=== PATIENT | male | born 1935 | race Caucasian/White ===

== ENCOUNTER → 2016-04-21 | Outpatient (CLI) | payer OTHER ==
[~2016-04-21] MED LIST: CALC500C70 PO; DGRI240 IM; HYDR2.5C37 TOP; SILO8CAP PO; TAMS0.4C38 PO; URX/10 PO; [UNRECOGNIZED DRUG - OTHER] PO
--- NOTE | 2016-05-22 10:54 | CODING QUERY MEDICAL NECESSITY ---
SUPPORTING DIAGNOSIS NEEDED A supporting diagnosis is required for the test/procedure performed on this patient in order for us to be reimbursed by the patient's insurance. Please provide a supporting diagnosis for the following test/procedure listed below next to the test name along with your signature. *If there is no additional diagnosis for this patient that would support the following test/procedure please document that below next to the test/procedure. Test(s)/Procedure(s) that require a supporting diagnosis: DOS 04/21 * PSA DIAGNOSIS: Provider Signature: Date: Thank you Andreina Duarte Health Information Management Once completed, please kindly fax back to [phone] For questions please call [phone]
== END | disposition home or self-care (01) ==
LOC: C.LABPBG 14:48
PROVIDERS: ATTEND Urology
DX: R39.9 Unspecified symptoms and signs involving the genitourinary system (principal); N40.2 Nodular prostate without lower urinary tract symptoms

== ENCOUNTER → 2016-05-28 | Outpatient (CLI) | payer OTHER ==
[~2016-05-28] MED LIST changes: +AZO PO; +PSYL48.59 PO
== END | disposition home or self-care (01) ==
LOC: C.PATHSPEC 17:06
PROVIDERS: ATTEND Urology
DX: N40.2 Nodular prostate without lower urinary tract symptoms (principal); C61 Malignant neoplasm of prostate

== ENCOUNTER 2016-06-02 13:30 | Emergency (ER) | payer OTHER ==
[~2016-06-02] VITALS: Ht 180.3 cm; Wt 79.0 kg
[2016-06-02 13:35] VITALS: TEMP 36.9; Ht 180.3 cm; Wt 79.0 kg
[2016-06-02] MEDS ORDERED: URX/10 PO (13:48)
[2016-06-02] MEDS ORDERED: [UNRECOGNIZED DRUG - OTHER] PO (13:49)
[2016-06-02 14:30] LABS: BASO % 0.5 %; BASO ABS # 0.03 K/uL (0-0.2); COMPLETE YES; EOS % 2.6 %; HEMATOCRIT 41.6 % (42-52); LYMPH % 28.1 %; MEAN CELL VOLUME 87.6 fL (80-100); MEAN CORPUSCULAR HEMOGLOBIN 30.1 pg (25-34); MEAN CORPUSCULAR HGB CONC 34.4 g/dl (32-36); MEAN PLATELET VOLUME 9.4 fL (7.4-10.4); MONO % 9.2 %; NEUT % 59.6 %; PLATELET COUNT 246 K/uL (130-400); RED BLOOD COUNT 4.75 M/uL (4.7-6.1); WHITE BLOOD COUNT 6.06 K/uL (4.8-10.8)
[2016-06-02 14:37] VITALS: O2SAT 97
[2016-06-02 14:39] LABS: PROTHROMBIN TIME (PATIENT) 10.8 SECONDS (9.0-12.0)
[2016-06-02 14:52] LABS: URINE APPEARANCE CLEAR (CLEAR); URINE BILIRUBIN NEG (NEG); URINE COLOR YELLOW; URINE NITRITE NEG (NEG); URINE SPECIFIC GRAVITY 1.016 (1.000-1.030); UROBILINOGEN NEG (NEG)
[2016-06-02 14:54] LABS: ALT/SGPT 25 U/L (12-78); AST/SGOT 17 U/L (15-37); BLOOD UREA NITROGEN 17 mg/dl (7-18); CALCIUM 8.8 mg/dl (8.5-10.1); CARBON DIOXIDE 28 mmol/L (21-32); CHLORIDE 105 mmol/L (98-107); GLUCOSE 97 mg/dl (70-99); POTASSIUM 4.2 mmol/L (3.5-5.1); SODIUM 140 mmol/L (136-145)
[2016-06-02 14:59] LABS: ALKALINE PHOSPHATASE 76 U/L (45-117); CKMB/CK RATIO 2.2 (0-3.0)
--- NOTE | 2016-06-02 15:14 | History and Physical: Surg Cnt ---
History & Physical Date Jun 02, 2016. Chief Complaint Hemorrhoids, rectal pain History of Present Illness The patient is a 81 year old male who presented to emergency department with complaint of hemorrhoids and rectal pain. Jose states he has had history of hemorrhoids in the past but has not had any significant troubles with them. States about 5 weeks ago , had a digital rectal examination for his prostate and then just recently this past had a prostate biopsy in the office under local anesthesia however this was not able to be completed given the extent of the hemorrhoids. Since the biopsy has had increasing pain and protrusion of the hemorrhoids. was a 10/10 pain at it worse now about 5/10. states they actually look slightly better than what they did a few days ago. Not as swollen. Had some loose stools with Bactrim antibiotics which he believes irritated the hemorrhoids. Denies of any constipation or straining. Has been applying Anusol as well as using witch malou tux pads. Past Medical/Surgical History Medical Problems: (1) Neurocardiogenic syncope Surgical Problems: (1) H/O hernia repair Allergies Coded Allergies: Cephalexin (Verified Allergy, Unknown, STOMACH PAINS, 06/02/16) Codeine (Verified Allergy, Unknown, HIVES, 06/02/16) Home Medications Scheduled Alfuzosin HCl (Alfuzosin HCl ER), 10 MG PO AFTER SUPPER [Protocel], 1 TAB PO 5XD Physical Examination Skin: warm/dry, no rash Eyes: sclerae normal Head: normocephalic, atraumatic Neck: supple Respiratory/Chest: lungs clear, normal breath sounds, no respiratory distress Cardiovascular: regular rate, rhythm Addiitonal Comments: Anorectal examination: Grade three external hemorrhoid left lateral column. Pain on a palpation. Encompassing about 180 degrees of the anus. Slightly bluish discoloration of part of the hemorrhoid. Non-thrombosed. Diagnosis Large External hemorrhoid- Left Lateral. - not thrombosed - vitals stable - no leukocytosis Plan of Treatment Plan: Dr. Chandler discussed with patient, either the option of surgical excision or conservative management with Anusol and Hydrocortisone, sitz baths, stools softener, avoiding constipation, and plenty of water. Since patients pain is improving and size of hemorrhoids decreasing patient would prefer to try conservative management first. Will give patient our office number to contact if pain increases or symptoms do not improve Thank you for the consultation and involving us in the care of this patient. Dr. Chandler has seen and examined patient, agrees with assessment and plan.
[2016-06-02 15:18] LABS: MANUAL MICROSCOPIC REQUIRED? NO; REVIEW REQ? NO
[2016-06-02 16:22] VITALS: BP 122/80; PULSE 71; O2SAT 96
--- NOTE | 2016-06-02 20:23 | EMERGENCY ROOM VISIT NOTE ---
History Report prepared by Destini: Amy Vela Under the Supervision of: Dr. Carlos Ca M.D. First contact with patient: 13:42 Chief Complaint: RECTAL PAIN Stated Complaint: HEMORRHOID Nursing Triage Summary: Triage Note: Pt reports "i have hemorrhoid problems." Pt reports increased rectal pain. pt had a prostate biopsy last by dr bee. History of Present Illness The patient is a 81 year old male who presents to the Emergency Room with complaints of worsening hemorrhoids over the past several weeks. Per patient's daughter, the patient has a history of hemorrhoids. The patient states that he is typically able to control the hemorrhoids. 5 weeks ago, the patient had a digital prostate examination and his hemorrhoids worsened. 5 days ago, the patient had a prostate biopsy. They did not finish the entire procedure due to his hemorrhoids. He was not given any medication to help with the hemorrhoids at that time. Since then, he has been hardly able to get out of bed. At rest, his pain is a 3/10 in severity but extends to a 10/10 with certain movements. His daughter states that he has been using some over the counter medications and ice with little relief. The patient could not get an outpatient appointment today so his family decided to bring him to the ED. They report that there was some rectal bleeding after the biopsy, but his hemorrhoids have not been bleeding. Pt denies LOC, headache, fevers, chills, diaphoresis, visual changes, neck pain, chest pain, breathing difficulties, nausea, vomiting, abdominal pain , back pain, melena, hematochezia, urinary symptoms, numbness, weakness, lymphadenopathy, rash, or other complaints. Source of History: patient Onset: several weeks ago Position: other (perirectal area) Quality: other (hemorrhoids) Timing: worsening Review of Systems See HPI for pertinent positives and negatives. A total of ten systems were reviewed and were otherwise negative. Past Medical & Surgical Medical Problems: (1) Neurocardiogenic syncope Surgical Problems: (1) H/O hernia repair Family History Cancer Heart disease Hypertension Kidney disease Seizures Social History Smoking Status: Never Smoker Marital Status: Housing Status: lives with significant other Occupation Status: retired Current/Historical Medications Scheduled Alfuzosin HCl (Alfuzosin HCl ER), 10 MG PO AFTER SUPPER [Protocel], 1 TAB PO 5XD Allergies Coded Allergies: Cephalexin (Verified Allergy, Unknown, STOMACH PAINS, 06/02/16) Codeine (Verified Allergy, Unknown, HIVES, 06/02/16) Physical Exam Vital Signs Date Time Temp Pulse Resp B/P Pulse Ox O2 Delivery O2 Flow Rate FiO2 06/02/16 16:22 71 20 122/80 96 06/02/16 15:28 72 20 128/71 97 Room Air 06/02/16 14:41 72 06/02/16 14:37 97 Room Air 06/02/16 13:35 36.9 96 18 118/69 95 Room Air Physical Exam GENERAL: Awake, alert, well-appearing, in no distress HENT: Normocephalic, atraumatic. Oropharynx unremarkable. EYES: Normal conjunctiva. Sclera non-icteric. NECK: Supple. No nuchal rigidity. FROM. No JVD. RESPIRATORY: Clear to auscultation. CARDIAC: Regular rate, normal rhythm. Extremities warm and well perfused. Pulses equal. ABDOMEN: Soft, non-distended. No tenderness to palpation. No rebound or guarding. No masses. RECTAL: He has large, edematous, tender, non-erythematous hemorrhoids. MUSCULOSKELETAL: Chest examination reveals no tenderness. The back is symmetrical on inspection without obvious abnormality. There is no CVA tenderness to palpation. No joint edema. LOWER EXTREMITIES: Calves are equal size bilaterally and non-tender. No edema. No discoloration. NEURO: Normal sensorium. No sensory or motor deficits noted. SKIN: No rash or jaundice noted. Medical Decision & Procedures Laboratory Results 06/02/16 14:20 Red Blood Count 4.75, Mean Corpuscular Volume 87.6, Mean Corpuscular Hemoglobin 30.1, Mean Corpuscular Hemoglobin Concent 34.4, Mean Platelet Volume 9.4, Neutrophils (%) (Auto) 59.6, Lymphocytes (%) (Auto) 28.1, Monocytes (%) (Auto) 9.2, Eosinophils (%) (Auto) 2.6, Basophils (%) (Auto) 0.5, Neutrophils # (Auto) 3.61, Lymphocytes # (Auto) 1.70, Monocytes # (Auto) 0.56, Eosinophils # (Auto) 0.16, Basophils # (Auto) 0.03 06/02/16 14:20 Test 06/02/16 14:20 06/02/16 14:35 White Blood Count 6.06 K/uL (4.8-10.8) Red Blood Count 4.75 M/uL (4.7-6.1) Hemoglobin 14.3 g/dL (14.0-18.0) Hematocrit 41.6 % (42-52) Mean Corpuscular Volume 87.6 fL (80-100) Mean Corpuscular Hemoglobin 30.1 pg (25-34) Mean Corpuscular Hemoglobin Concent 34.4 g/dl (32-36) Platelet Count 246 K/uL (130-400) Mean Platelet Volume 9.4 fL (7.4-10.4) Neutrophils (%) (Auto) 59.6 % Lymphocytes (%) (Auto) 28.1 % Monocytes (%) (Auto) 9.2 % Eosinophils (%) (Auto) 2.6 % Basophils (%) (Auto) 0.5 % Neutrophils # (Auto) 3.61 K/uL (1.4-6.5) Lymphocytes # (Auto) 1.70 K/uL (1.2-3.4) Monocytes # (Auto) 0.56 K/uL (0.11-0.59) Eosinophils # (Auto) 0.16 K/uL (0-0.5) Basophils # (Auto) 0.03 K/uL (0-0.2) RDW Standard Deviation 40.5 fL (36.4-46.3) RDW Coefficient of Variation 12.5 % (11.5-14.5) Immature Granulocyte % (Auto) 0.0 % Immature Granulocyte # (Auto) 0.00 K/uL (0.00-0.02) Prothrombin Time 10.8 SECONDS (9.0-12.0) Prothromb Time International Ratio 1.0 (0.9-1.1) Activated Partial Thromboplast Time 27.1 SECONDS (21.0-31.0) Partial Thromboplastin Ratio 1.0 Anion Gap 7.0 mmol/L (3-11) Est Creatinine Clear Calc Drug Dose 55.1 ml/min Estimated GFR () 72.1 Estimated GFR (Non- 62.2 BUN/Creatinine Ratio 15.0 (10-20) Calcium Level 8.8 mg/dl (8.5-10.1) Total Bilirubin 0.6 mg/dl (0.2-1) Direct Bilirubin 0.2 mg/dl (0-0.2) Aspartate Amino Transf (AST/SGOT) 17 U/L (15-37) Alanine Aminotransferase (ALT/SGPT) 25 U/L (12-78) Alkaline Phosphatase 76 U/L (45-117) Total Creatine Kinase 36 U/L (39-308) Creatine Kinase MB 0.8 ng/ml (0.5-3.6) Creatine Kinase MB Ratio 2.2 (0-3.0) Troponin I < 0.015 ng/ml (0-0.045) Total Protein 7.3 gm/dl (6.4-8.2) Albumin 3.4 gm/dl (3.4-5.0) Lipase 133 U/L (73-393) Urine Color YELLOW Urine Appearance CLEAR (CLEAR) Urine pH 5.0 (4.5-7.5) Urine Specific [place] 1.016 (1.000-1.030) Urine Protein NEG (NEG) Urine Glucose (UA) NEG (NEG) Urine Ketones NEG (NEG) Urine Occult Blood NEG (NEG) Urine Nitrite NEG (NEG) Urine Bilirubin NEG (NEG) Urine Urobilinogen NEG (NEG) Urine Leukocyte Esterase NEG (NEG) Laboratory results reviewed by me ECG Indication: other (rectal pain) Rate (beats per minute): 73 Rhythm: normal sinus Findings: no acute ischemic change, no ectopy ED Course 1400: The patient was evaluated in room B2. A complete history and physical exam was performed. 1435: I discussed the case with Charlette Herr PA-C - General Surgery. She will see the patient. 1448: I reassessed the patient. Surgery was at bedside. 1545: I spoke with Dr. Chandler - General Surgery. The patient had a large meal POULTRY VACCINATOR. Because he cannot go to surgery at this point, Dr. Chandler and the patient agreed on conservative management using ice, Sitz baths, Cholase, and Anusol HC. 1605: I reevaluated the patient. Discussed results and discharge instructions: He verbalized understanding and agreement. The patient is ready for discharge. Medical Decision Triage Nursing notes reviewed. The patient's presentation and history were concerning for rectal pain. Etiologies such as incarcerated hemorrhoids, thrombosed hemorrhoids, perirectal abscess, appendicitis, diverticulitis, obstruction, inflammatory bowel disease , renal colic, PUD, biliary pathology, pancreatitis, mesenteric ischemia, aortic pathology, infections, genitourinary, UTI, perforated viscus, as well as others were entertained. The patient was evaluated. He had a benign abdomen. He is rectal examination reveals significant edematous and tender hemorrhoids. The patient had unremarkable blood work. I did consult general surgery. The patient was evaluated by Dr. Chandler and his PA. Unfortunately the patient had just eaten and they were unable to do any surgical intervention. I did recommend Anusol HC, ice, stool softener, and sitz bath. They will follow the patient up in the office. If he worsens he is supposed to come back to the emergency department. I gave my usual and customary discussion regarding this issue. I did write for his Anusol HC prescription. By the evaluation outlined above other emergent etiologies such as those listed in the differential, as well as others, were deemed relatively unlikely. The patient and family were informed about the findings as listed above. All questions were answered and they were pleased with the treatment. Return instructions were outlined and the patient was discharged in stable condition. The patient was referred to general surgery for follow-up for a recheck of the current condition. The chart was completed utilizing [facility] Speech voice recognition software. Grammatical errors, random word insertions, pronoun errors, and incomplete sentences are an occasional consequence of this system due to software limitations, ambient noise, and hardware issues. Any formal questions or concerns about the content, text, or information contained within the body of this dictation should be directly addressed to the physician for clarification. Consults Time Called: 1430 Consulting Physician: Charlette Herr PA-C - General Surgery Returned Call: [phone] I discussed the case with her. She will see the patient. Additional Consults: Time Called: -- Consulted Physician: Dr. Chandler - General Surgery Returned Call: [phone] Additional Comments: I spoke with him. The patient had a large meal POULTRY VACCINATOR. Because he cannot go to surgery at this point, Dr. Chandler and the patient agreed on conservative management using ice, Sitz baths, Cholase, and Anusol HC. Impression Primary Impression: Hemorrhoids Additional Impression: Rectal pain Scribe Attestation The scribe's documentation has been prepared under my direction and personally reviewed by me in its entirety. I confirm that the note above accurately reflects all work, treatment, procedures, and medical decision making performed by me. Departure Information Dispostion Home / Self-Care Referrals Franklyn Chandler M.D. Williams Beíntez M.D. Patient Instructions My [facility] Additional Instructions Anusol HC cream twice daily to the hemorrhoids. Ice compresses to the hemorrhoids for 10-15 minutes at a time four times daily for 2-3 days. Over the counter stool softener twice daily until the hemmorhoids resolve. Continue Tucks pads. Sitz bath or warm shower after every bowel movement or even several times per day. Tylenol as needed for pain. Follow-up with Dr. Chandler as discussed. Return to the ER for worsening rectal pain, abdominal pain, vomiting, fevers, bloody stools, or as needed. Problem Qualifiers Primary Impression: Hemorrhoids Hemorrhoid type: fourth degree Qualified Codes: K64.3 - Fourth degree hemorrhoids
[2016-06-25] MEDS ORDERED: DGRI240 IM (08:35)
[2016-06-25] MEDS ORDERED: SILO8CAP PO (09:42)
[2016-06-25] MEDS ORDERED: HYDR2.5C37 TOP (09:42)
[2016-10-27] MEDS ORDERED: TAMS0.4C38 PO (09:46)
[2016-10-27] MEDS ORDERED: CALC500C70 PO (09:48)
[2016-12-14] MEDS ORDERED: PSYL48.59 PO (10:04)
[2017-01-04] MEDS ORDERED: AZO PO (10:04)
== END 2016-06-02 16:22 | disposition home or self-care (01) ==
LOC: C.EDB 13:31
DX: K64.3 Fourth degree hemorrhoids (principal); K62.89 Other specified diseases of anus and rectum; Z82.49 Family history of ischemic heart disease and other diseases of the circulatory system; Z82.0 Family history of epilepsy and other diseases of the nervous system

== ENCOUNTER → 2016-06-11 | Outpatient (CLI) | payer OTHER ==
[~2016-06-11] MED LIST changes: +OPTIRAY 320 IV PRN
--- NOTE | 2016-06-11 08:42 | DIAGNOSTIC IMAGING REPORT ---
CT SCAN OF THE ABDOMEN AND PELVIS WITH IV CONTRAST CLINICAL HISTORY: Prostate cancer. COMPARISON STUDY: No priors. TECHNIQUE: Following the IV administration of 93 cc of Optiray 320, CT scan of the abdomen and pelvis is performed from the lung bases to the proximal femora. Images are reviewed in the axial, sagittal, and coronal planes. IV contrast was administered without complication. Automated dose control exposure was utilized. CT DOSE: 447.14 mGy.cm FINDINGS: Lung bases: The heart is mildly enlarged and without pericardial effusion. The coronary arteries and aortic valve leaflets are densely calcified. Changes of chronic interstitial lung disease are present at the lung bases. There is no evidence of superimposed airspace consolidation or pleural effusion. There is a small hiatal hernia. Liver: The contrast-enhanced liver is normal in size, contour, and attenuation. A 5.8 cm cyst is noted in the left hepatic lobe. An additional subcentimeter cyst is seen on the left lobe on image #106. Fatty infiltration is noted adjacent to the falciform ligament. There is no intrahepatic biliary ductal dilatation. The hepatic veins and portal veins are patent. Gallbladder: Unremarkable. Spleen: Normal in size and attenuation. Pancreas: Moderately atrophic and grossly unremarkable. Adrenal glands: Unremarkable. Kidneys: The contrast enhanced kidneys demonstrate cortical atrophy and there is mild bilateral hydroureteronephrosis. The kidneys enhance symmetrically. A 1.7 cm cyst arises from the right lower pole. Abdominal vasculature: The abdominal aorta is normal in course and caliber noting moderate atherosclerotic calcification. Bowel: The small bowel and colon are normal in course and caliber. There is moderate sigmoid diverticulosis without CT evidence of acute diverticulitis. [id number] colonic fecal retention is observed. The appendix is well-visualized and normal. Peritoneum: There is no intraperitoneal free air or abdominal ascites. Lymphadenopathy: There are mildly enlarged pelvic sidewall lymph nodes. A node along the left pelvic sidewall on image #388 measures 1.7 x 1.1 cm. Prominent right pelvic sidewall nodes are seen on images #374 and #382. A mildly enlarged right external iliac chain node is seen on image #367 and measures 1.6 x 1.0 cm. No pathologically enlarged retroperitoneal lymph nodes are identified. Pelvic viscera: The prostate gland is mildly enlarged and heterogeneous. There is lobulated soft tissue identified on the posterior bladder. There is abnormal soft tissue thickening seen along the posterior bladder wall and bladder invasion is not excluded. This likely obstructs the vesicoureteral junction bilaterally given the presence of hydronephrosis. The bladder wall appears thickened and trabeculated suggesting chronic outlet obstruction. Numerous phleboliths are seen in the pelvis. There is a tiny fat-containing right inguinal hernia. Skeletal structures: The skeletal structures are osteopenic. There is mild to moderate lumbosacral spondylosis. No lytic or blastic lesions are seen. IMPRESSION: 1. The prostate gland is mildly enlarged and heterogeneous. There is abnormal soft tissue/nodularity identified superiorly involving the median lobe and bladder invasion is not excluded. 2. There is abnormal soft tissue identified along the posterior wall of the bladder. This likely causes obstruction at the vesicoureteral junction bilaterally as there is mild bilateral hydroureteronephrosis. 3. There are mildly enlarged pelvic sidewall and right external iliac chain lymph nodes. This is concerning for higinio metastatic disease. 4. The bladder wall is thickened and trabeculated indicating chronic outlet obstruction. 5. Moderate sigmoid diverticulosis without CT evidence of acute diverticulitis. 6. Changes of chronic interstitial lung disease are present at the lung bases. 7. No osteoblastic lesions are seen. 8. Additional findings as above. Electronically signed by: Sunny Freitas M.D. 06/11/2016 8:40 AM Dictated Date/Time: 06/11/2016 8:29 AM
--- NOTE | 2016-06-11 11:43 | DIAGNOSTIC IMAGING REPORT ---
WHOLE BODY BONE SCAN HISTORY: Prostate carcinoma C61 Prostate [id number] RADIOTRACER: 26.487 mCi Tc-99m MDP STUDY/IMAGES: Planar anterior and posterior whole body imaging was performed 3 hours following the intravenous administration of radiotracer. COMPARISON: None. FINDINGS: Mild scattered degenerative activity. This primarily includes the shoulders knees and ankles. Minimal degenerative activity of thoracolumbar spine. Bilateral renal activity is present. There is no evidence for abnormal soft tissue activity characteristics. Moderate degenerative activity sacral ileal regions. IMPRESSION: 1. Study is negative for metastatic bone disease. 2. Moderate degenerative scattered activity as discussed Electronically signed by: Franklyn Haque M.D. 06/11/2016 11:41 AM Dictated Date/Time: 06/11/2016 11:39 AM
== END | disposition home or self-care (01) ==
LOC: C.NUCL 07:44
PROVIDERS: ATTEND Urology
DX: C61 Malignant neoplasm of prostate (principal); R59.0 Localized enlarged lymph nodes; J84.9 Interstitial pulmonary disease, unspecified

== ENCOUNTER → 2016-11-09 | Outpatient (CLI) | payer OTHER ==
[~2016-11-09] MED LIST changes: -AZO PO; -OPTIRAY 320 IV PRN; -PSYL48.59 PO; -SILO8CAP PO; -URX/10 PO
--- NOTE | 2016-11-09 14:14 | DIAGNOSTIC IMAGING REPORT ---
MRI OF THE PELVIS WITHOUT CONTRAST SPACEOAR PROTOCOL CLINICAL HISTORY: Prostate cancer for radiation therapy. SpaceOAR protocol. COMPARISON STUDY: CT of the abdomen and pelvis June 11, 2016. TECHNIQUE: Utilizing a 1.5 Gabrielle magnet and dedicated coil, multiplanar, multiecho imaging of the pelvis was performed without intravenous contrast according to the SpaceOAR protocol. FINDINGS: No definite gel spacer is identified on this examination. The rectum contacts the prostate. Bladder wall irregularity with trabeculations is noted. Pelvic lymphadenopathy shown on CT of June 11, 2016 has resolved. No suspicious marrow replacement is identified within visualized skeletal structures. A fat-containing right inguinal hernia is noted. Evaluation of the prostate itself is suboptimal on this unenhanced examination. IMPRESSION: 1. No hydrogel spacer identified. 2. Interval resolution of pelvic lymphadenopathy since CT of June 11, 2016 which suggests a treatment response. Electronically signed by: Cal Thompson M.D. 11/09/2016 2:13 PM Dictated Date/Time: 11/09/2016 1:39 PM
== END | disposition home or self-care (01) ==
LOC: C.MRI 11:39
PROVIDERS: ATTEND Physician Assistant Medical
DX: C61 Malignant neoplasm of prostate (principal)

== ENCOUNTER → 2017-02-25 | Outpatient (CLI) | payer OTHER ==
[~2017-02-25] MED LIST changes: +AZO PO; +PSYL48.59 PO
[2017-02-25 14:27] VITALS: BP 99/63; PULSE 84; TEMP 36.3; O2SAT 93
--- NOTE | 2017-02-25 15:36 | Radiation Oncology Follow-Up ---
Radiation Oncology Follow-Up Date of Visit Feb 25, 2017. Reason For Visit One-month follow-up Radiation Completion Date finished 01-20-2017, utilizing VMAT Diagnosis (1) Prostate cancer Status: Acute Onset Date: 05/28/2016 Location: both lobes of the prostate Histology Subtype: adenocarcinoma Stage: IV Permanent Comment: Lower urinary tract symptoms, PSA 6.550 Status post ultrasound-guided biopsies 05/28/2016 Adenocarcinoma the prostate [place] 5+4 Prostate volume [address] suspected higinio metastasis and bladder invasion Clinical stage T4 N1 M0 Initiation of hormone suppression 06/25/2016 plan to continue for a total of 28 months Status post completion of radiation therapy 01/20/2017. He received 7920 cGy utilizing VMAT Last Edited By: Frances Chan on Feb 01, 2017 10:43 History of Present Illness Mr. Yanez presented with increased urinary symptoms over the last several months including frequency, dysuria and incontinence and decreased urinary flow. The patient was referred by primary care to Dr. Aamir Coronado from urology. Dr. Coronado evaluated the patient and did perform a rectal examination which revealed a palpable nodule in the right lobe of the prostate gland. Dr. Coronado did order a PSA on 04/21/2016 which came back as 6.550. Dr. Coronado recommended a transrectal ultrasound-guided biopsy of the prostate gland. The patient underwent a transrectal ultrasound-guided biopsy of the prostate gland on 05/28/2016 which revealed prostate cancer involving 7/ 7 cores. These specific pathology revealed prostate adenocarcinoma that was [place] 5+4 with perineural invasion present. CT A/P (06/11/16) - IMPRESSION: 1. The prostate gland is mildly enlarged and heterogeneous. There is abnormal soft tissue/nodularity identified superiorly involving the median lobe and bladder invasion is not excluded. 2. There is abnormal soft tissue identified along the posterior wall of the bladder. This likely causes obstruction at the vesicoureteral junction bilaterally as there is mild bilateral hydroureteronephrosis. 3. There are mildly enlarged pelvic sidewall and right external iliac chain lymph nodes. This is concerning for higinio metastatic disease. 4. The bladder wall is thickened and trabeculated indicating chronic outlet obstruction. 5. Moderate sigmoid diverticulosis without CT evidence of acute diverticulitis. 6. Changes of chronic interstitial lung disease are present at the lung bases. 7. No osteoblastic lesions are seen. 8. Additional findings as above. Bone Scan (06/11/16) - IMPRESSION: 1. Study is negative for metastatic bone disease. 2. Moderate degenerative scattered activity as discussed. The patient was also seen by Dr. Rajinder Dixon from urology who recommended consideration of androgen deprivation therapy with radiation therapy. We are now seeing the patient in consultation discuss the role of radiation therapy. He completed radiation therapy 01/20/2017. He received 7920 cGy utilizing VMAT. Interim History He's been doing well over the past month. He feels his urinary symptoms are steadily improving. His AUA score today was 16. At the end of treatment his score had been 18. He completed expanded prostate cancer index composite for clinical practice and gave a score of 3 of 12 urinary incontinence symptoms. He gave a score of 6 of 12 urinary irritation symptoms. He gave a score of 212 and bowel symptoms. He gave a score 8 of 12 sexual symptoms. He gave a score of one of 12 and hormonal vitality symptoms. His total was 20 of 60. He continues on with hormone suppression. He is now getting his injections in [place] which is closer to his home at Dr. Dixon's office. Allergies Coded Allergies: Statins (Verified Allergy, Mild, Muscle Weakness , 06/25/16) Cephalexin (Verified Allergy, Unknown, STOMACH PAINS, 06/02/16) Codeine (Verified Allergy, Unknown, HIVES, 06/02/16) Home Medications Scheduled Calcium/Vitamin D (Os-Gilberto 500 Plus D), 1 TAB PO DAILY Degarelix Acetate (Firmagon), 1 APPLN IM DIRECTED Psyllium (Metamucil), 1 TSP PO DAILY Tamsulosin Hcl (Flomax), 1 CAP PO BID [Protocel], 0.25 TSP PO 5XD Review of Systems Gastrointestinal: GI Comments: takes metamucil daily Oral: Symptoms: No Problems Respiratory: Symptoms: Dry Cough Other Respiratory: occ dry cough Urinary: Symptoms: Nocturia, Frequency Comments: voids hourly during the day and night, urgency Skin: Other Skin Symptoms: "Rash on both lower legs " using cortisone Physical Exam Vital Signs Date Time Temp Pulse Resp B/P (MAP) Pulse Ox O2 Delivery O2 Flow Rate FiO2 02/25/17 14:27 36.3 84 16 99/63 93 Fatigue: None General Appearance: no apparent distress Eyes: normal inspection, EOMI ENT: normal ENT inspection, hearing grossly normal Neck: no adenopathy, thyroid normal Respiratory/Chest: lungs clear, no respiratory distress, no accessory muscle use Cardiovascular: regular rate, rhythm, no gallop, no murmur Abdomen: non tender, soft Extremities: no pedal edema Neurologic/Psychiatric: no motor/sensory deficits, alert, normal mood/affect Skin: warm/dry Lymphatic: no adenopathy Pain Management Patient Reports Pain: No Side: Bilateral Patient Preferred Pain Scale: 0 - 10 Initial Pain Intensity: 0.0 Pain Management Plan He does not require any pain management. Laboratory Laboratory Results: not applicable Pathology Pathology Results: pending Imaging Imaging Studies: not applicable Assessment & Plan Plan: He was seen today by Dr. Arrington. The PSA was drawn. He'll be notified as to results. He'll continue follow-up with Dr. Dixon in [place]. We will get his androgen deprivation at his office. We asked him to return to our office in 6 months. He may call if he has any questions or concerns in the interim. Assessment & Plan (Attending) ADDENDUM: I agree with note created by Frances Chan PA-C. I reviewed the patient's chart and information with her. I have examined and evaluated the patient. I reviewed relevant clinical information and answered the patient's and /or family's questions. SPECIMEN ACCESSIONER Total Time In Follow-Up I spent 20 minutes speaking to the patient to perform examination. I spent 15 minutes reviewing information completing this note. AK Total Time (Attending) In Follow-Up I spent 15 minutes examining and counseling the patient. SPECIMEN ACCESSIONER Copy To Becca Cerna DO; Rajinder Dixon M.D.
== END | disposition home or self-care (01) ==
LOC: C.ONC 14:09
PROVIDERS: ATTEND Physician Assistant Medical
DX: Z08 Encounter for follow-up examination after completed treatment for malignant neoplasm (principal); Z92.3 Personal history of irradiation; Z85.46 Personal history of malignant neoplasm of prostate

== ENCOUNTER → 2017-05-25 | Outpatient (CLI) | payer OTHER ==
[~2017-05-25] MED LIST changes: -AZO PO; -HYDR2.5C37 TOP
[2017-05-25 13:22] LABS: HEMATOCRIT 40.8 % (42-52); HEMOGLOBIN 13.7 g/dL (14.0-18.0); MEAN CELL VOLUME 92.5 fL (80-100); MEAN CORPUSCULAR HEMOGLOBIN 31.1 pg (25-34); MEAN CORPUSCULAR HGB CONC 33.6 g/dl (32-36); MEAN PLATELET VOLUME 9.6 fL (7.4-10.4); PLATELET COUNT 203 K/uL (130-400); RED CELL DISTRIBUTION WIDTH CV 12.7 % (11.5-14.5); RED CELL DISTRIBUTION WIDTH SD 43.1 fL (36.4-46.3); WHITE BLOOD COUNT 4.52 K/uL (4.8-10.8)
[2017-05-25 14:32] LABS: ALBUMIN 3.8 gm/dl (3.4-5.0); ALT/SGPT 21 U/L (12-78); BLOOD UREA NITROGEN 18 mg/dl (7-18); CALCIUM 9.2 mg/dl (8.5-10.1); CARBON DIOXIDE 29 mmol/L (21-32); CHOLESTEROL 231 mg/dl (0-200); GLUCOSE 91 mg/dl (70-99); SODIUM 139 mmol/L (136-145)
[2017-05-25 14:35] LABS: ALKALINE PHOSPHATASE 83 U/L (45-117); AST/SGOT 16 U/L (15-37); LDL CHOLESTEROL CALCULATED 149 mg/dl; TOTAL PROTEIN 7.4 gm/dl (6.4-8.2)
== END | disposition home or self-care (01) ==
LOC: C.LABPBG 09:39
PROVIDERS: ATTEND Family Medicine
DX: R55 Syncope and collapse (principal); C61 Malignant neoplasm of prostate; E78.5 Hyperlipidemia, unspecified; I77.9 Disorder of arteries and arterioles, unspecified

== ENCOUNTER → 2017-06-01 | Outpatient (CLI) | payer OTHER ==
--- NOTE | 2017-06-01 13:00 | DIAGNOSTIC IMAGING REPORT ---
CAROTID ARTERY ULTRASOUND CLINICAL HISTORY: CAROTID ARTERY DISEASE COMPARISON STUDY: None. TECHNIQUE: Real-time, grayscale, and color Doppler sonography of the carotid and vertebral arteries was performed. Images were viewed in the transverse and longitudinal planes. FINDINGS: There is mild atherosclerotic plaque. Velocity measurements are listed below. COMMON CAROTID PEAK SYSTOLIC VELOCITY (CM/S): RIGHT 78 LEFT 61 ICA PEAK SYSTOLIC VELOCITY (CM/S): RIGHT 69 LEFT 72 Systolic ratios between the internal to common carotid arteries are normal. Antegrade flow is seen in the vertebral arteries. The external carotid arteries are patent. Blood pressure in the right arm measured 119/71. Blood pressure in the left arm measured 115/69. IMPRESSION: No evidence for a hemodynamically significant stenosis. Electronically signed by: Cal Thompson M.D. 06/01/2017 12:58 PM Dictated Date/Time: 06/01/2017 12:57 PM
== END | disposition home or self-care (01) ==
LOC: C.ULTR 12:09
PROVIDERS: ATTEND Family Medicine
DX: I77.9 Disorder of arteries and arterioles, unspecified (principal)

== ENCOUNTER → 2017-06-16 | Outpatient (CLI) | payer OTHER ==
--- NOTE | 2017-06-16 12:52 | DIAGNOSTIC IMAGING REPORT ---
THYROID ULTRASONOGRAPHY CLINICAL HISTORY: THYROID NODULE COMPARISON STUDY: No previous studies for comparison. FINDINGS: The right lobe of the thyroid measures 46 x 13 x 15 mm. The left lobe measures 40 x 13 x 19 mm. There is a 3 mm hypoechoic mid pole left lobe nodule. This contains a small echogenic focus, likely representing colloid artifact. IMPRESSION: 3 mm mid pole left lobe thyroid nodule. No suspicious nodules are visualized based on ultrasound criteria Electronically signed by: Buddy Romeo M.D. 06/16/2017 12:51 PM Dictated Date/Time: 06/16/2017 12:50 PM
== END | disposition home or self-care (01) ==
LOC: C.ULTR 11:51
PROVIDERS: ATTEND Family Medicine
DX: E04.1 Nontoxic single thyroid nodule (principal)

== ENCOUNTER → 2017-07-15 | Outpatient (CLI) | payer OTHER | END | disposition home or self-care (01) | LOC: C.LABPBG 11:07 | PROVIDERS: ATTEND Urology | DX: C61 Malignant neoplasm of prostate (principal) ==

== ENCOUNTER 2017-09-25 21:42 | Emergency (ER) | payer OTHER ==
[~2017-09-25] VITALS: Ht 180.3 cm; Wt 76.2 kg
[~2017-09-25 21:42] MED LIST changes: +CHOL1000 PO; -DGRI240 IM; +LEUP30IN3 IM; -PSYL48.59 PO
[2017-09-25 21:51] VITALS: TEMP 36.8; Ht 180.3 cm; Wt 76.2 kg
[2017-09-25 22:17] LABS: BASO % 0.5 %; BASO ABS # 0.03 K/uL (0-0.2); EOS % 6.3 %; EOS ABS # 0.37 K/uL (0-0.5); HEMATOCRIT 40.5 % (42-52); HEMOGLOBIN 13.3 g/dL (14.0-18.0); IG# 0.01 K/uL (0.00-0.02); LYMPH % 23.5 %; LYMPH ABS # 1.37 K/uL (1.2-3.4); MEAN CORPUSCULAR HEMOGLOBIN 29.9 pg (25-34); MEAN CORPUSCULAR HGB CONC 32.8 g/dl (32-36); MEAN PLATELET VOLUME 9.5 fL (7.4-10.4); MONO % 12.5 %; MONO ABS # 0.73 K/uL (0.11-0.59); NEUT ABS # 3.32 K/uL (1.4-6.5); PLATELET COUNT 191 K/uL (130-400); RED CELL DISTRIBUTION WIDTH CV 12.9 % (11.5-14.5); RED CELL DISTRIBUTION WIDTH SD 43.1 fL (36.4-46.3); WHITE BLOOD COUNT 5.83 K/uL (4.8-10.8)
--- NOTE | 2017-09-25 22:25 | DIAGNOSTIC IMAGING REPORT ---
SINGLE VIEW CHEST CLINICAL HISTORY: Change in mental status. Weakness. FINDINGS: An AP, portable, upright chest radiograph is obtained. Correlation is made with abdominal CT dated 06/11/2016. The examination is degraded by portable technique and patient rotation. The heart is top normal in size and there is mild atherosclerotic calcification of the thoracic aorta. Changes of chronic interstitial lung disease are similar to previous. There is bibasilar scarring/atelectasis. No superimposed airspace consolidation or pleural effusion is identified. Apical scarring is observed. No pneumothorax is seen. The skeletal structures are osteopenic. The bony thorax is grossly intact. Degenerative change is noted in the thoracic spine. IMPRESSION: There are changes of chronic interstitial lung disease. No acute cardiopulmonary abnormality is seen. Electronically signed by: Sunny Freitas M.D. 09/25/2017 10:24 PM Dictated Date/Time: 09/25/2017 10:22 PM
[2017-09-25 22:26] LABS: PTT PATIENT 24.7 SECONDS (21.0-31.0)
--- NOTE | 2017-09-25 22:39 | DIAGNOSTIC IMAGING REPORT ---
CT SCAN OF THE BRAIN WITHOUT IV CONTRAST CLINICAL HISTORY: Weakness. Change in mental status. COMPARISON STUDY: No priors. TECHNIQUE: Unenhanced axial CT scan of the brain is performed from the vertex to the skull base. A dose lowering technique was utilized adhering to the principles of ALARA. CT DOSE: 537.48 mGy.cm FINDINGS: Brain parenchyma: There are age-related involutional changes noting mild subcortical and periventricular microangiopathic change. There is no hemorrhage, mass effect, or evidence of acute territorial ischemia by CT criteria. Tabor-white matter is preserved. No extra-axial fluid collection is seen. Ventricles, sulci, cisterns: Prominent secondary to involutional change. Intracranial vasculature: There is atherosclerotic calcification of the cavernous carotid arteries. Calvarium: Unremarkable. Sinuses and mastoids: The visualized paranasal sinuses are clear. There is a trace left mastoid effusion. The right mastoid air cells are well pneumatized. Orbits: The bony orbits are grossly intact. There are bilateral ocular lens implants. IMPRESSION: There is no hemorrhage, mass effect, or evidence of acute territorial ischemia by CT criteria. Electronically signed by: Sunny Freitas M.D. 09/25/2017 10:37 PM Dictated Date/Time: 09/25/2017 10:35 PM
--- NOTE | 2017-09-25 22:47 | EMERGENCY ROOM VISIT NOTE ---
History Report prepared by Destini: Hernesto Gutierres Under the Supervision of: Kaz TrejoO. First contact with patient: 21:55 Chief Complaint: NEURO SYMPTOMS Stated Complaint: DIZZINESS, SPEECH NOT UNDERSTOOD, CONFUSION History of Present Illness The patient is a 82 year old male who presents to the Emergency Room with complaints of resolved dizziness and unclear speech occurring today. Family reports that the patient did not feel well this morning and stated that he was "woozy." They state that later in the day, they saw him with his head down, noting that he was "praying." They state that when he put his head up, his speech was unclear. They state that it did not last too long, and report that the patient is currently at baseline. The patient states that he was not exerting himself or working outside today. He denies headache, abdominal pain, nausea, or vomiting. He reports neck pain but states that this is no different from baseline. He denies a history of stroke or TIA, although he notes a history of neurocardiogenic syncope. He also states that his father had a mini- stroke, and was brought into the ER to rule that out. He reports that he had prostate cancer last year and has not had his prostate removed. He denies taking blood thinners or aspirin. He states he received Doppler ultrasound and echocardiogram last year that showed no problems. Source of History: patient, family Onset: today Position: other (global) Quality: other (dizziness and unclear speech) Timing: resolved Associated Symptoms: No headache, No nausea, No vomiting, No abdominal pain Review of Systems See HPI for pertinent positives & negatives. A total of 10 systems reviewed and were otherwise negative. Past Medical & Surgical Medical Problems: (1) Neurocardiogenic syncope Surgical Problems: (1) H/O hernia repair Family History Cancer Heart disease Hypertension Kidney disease Seizures Social History Smoking Status: Never Smoker Marital Status: Housing Status: lives with significant other Occupation Status: retired Current/Historical Medications Scheduled Calcium/Vitamin D (Os-Gilberto 500 Plus D), 1 TAB PO DAILY Cholecalciferol (Vitamin D3), 1,000 UNITS PO DAILY Leuprolide Acetate (Lupron Depot), 30 MG IM DIRECTED Tamsulosin Hcl (Flomax), 0.4 MG PO Q2D Allergies Coded Allergies: Statins (Verified Allergy, Mild, Muscle Weakness , 06/25/16) Cephalexin (Verified Allergy, Unknown, STOMACH PAINS, 06/02/16) Codeine (Verified Allergy, Unknown, HIVES, 06/02/16) Physical Exam Vital Signs Date Time Temp Pulse Resp B/P (MAP) Pulse Ox O2 Delivery O2 Flow Rate FiO2 09/25/17 23:22 63 18 128/76 97 Room Air 09/25/17 22:01 66 09/25/17 21:51 36.8 79 18 119/75 96 Room Air Physical Exam GENERAL: Patient is awake, alert, and in no acute distress. Patient is resting comfortably and showing no signs of anxiety EYES: The conjunctivae are clear. The pupils are round and reactive. EARS, NOSE, MOUTH AND THROAT: The nose is without any evidence of any deformity. Mucous membranes are moist. Tongue is midline NECK: The neck is nontender and supple. RESPIRATORY: Normal respiratory effort is noted. There is no evidence of wheezing rhonchi or rales to auscultation. No bruits to auscultation. CARDIOVASCULAR: Regular rate and rhythm noted. There no murmurs rubs or gallops normal S1 normal S2 GASTROINTESTINAL: The abdomen is soft. Bowel sounds are present in all quadrants. Abdomen is nontender. BACK: No midline tenderness or or step-off noted range of motion in flexion extension as well as rotation no signs of muscle spasm noted. PELVIS: The Pelvis is stable. No tenderness to palpation is noted. MUSCULOSKELETAL/EXTREMITIES: There is no evidence of gross deformity. Full range of motion is noted in the hips and shoulders. SKIN: There is no obvious evidence of any rash. There are no petechiae, pallor or cyanosis noted. NEUROLOGIC: Patient is awake alert and oriented x3. Medical Decision & Procedures ER Provider Diagnostic Interpretation: Radiology results as stated below per my review and radiologist interpretation: SINGLE VIEW CHEST CLINICAL HISTORY: Change in mental status. Weakness. FINDINGS: An AP, portable, upright chest radiograph is obtained. Correlation is made with abdominal CT dated 06/11/2016. The examination is degraded by portable technique and patient rotation. The heart is top normal in size and there is mild atherosclerotic calcification of the thoracic aorta. Changes of chronic interstitial lung disease are similar to previous. There is bibasilar scarring/atelectasis. No superimposed airspace consolidation or pleural effusion is identified. Apical scarring is observed. No pneumothorax is seen. The skeletal structures are osteopenic. The bony thorax is grossly intact. Degenerative change is noted in the thoracic spine. IMPRESSION: There are changes of chronic interstitial lung disease. No acute cardiopulmonary abnormality is seen. Electronically signed by: Sunny Freitas M.D. 09/25/2017 10:24 PM Dictated Date/Time: 09/25/2017 10:[address] SCAN OF THE BRAIN WITHOUT IV CONTRAST CLINICAL HISTORY: Weakness. Change in mental status. COMPARISON STUDY: No priors. TECHNIQUE: Unenhanced axial CT scan of the brain is performed from the vertex to the skull base. A dose lowering technique was utilized adhering to the principles of ALARA. CT DOSE: 537.48 mGy.cm FINDINGS: Brain parenchyma: There are age-related involutional changes noting mild subcortical and periventricular microangiopathic change. There is no hemorrhage, mass effect, or evidence of acute territorial ischemia by CT criteria. Tabor-white matter is preserved. No extra-axial fluid collection is seen. Ventricles, sulci, cisterns: Prominent secondary to involutional change. Intracranial vasculature: There is atherosclerotic calcification of the cavernous carotid arteries. Calvarium: Unremarkable. Sinuses and mastoids: The visualized paranasal sinuses are clear. There is a trace left mastoid effusion. The right mastoid air cells are well pneumatized. Orbits: The bony orbits are grossly intact. There are bilateral ocular lens implants. IMPRESSION: There is no hemorrhage, mass effect, or evidence of acute territorial ischemia by CT criteria. Electronically signed by: Sunny Freitas M.D. 09/25/2017 10:37 PM Dictated Date/Time: 09/25/2017 10:35 PM Laboratory Results 09/25/17 22:00 Red Blood Count 4.45, Mean Corpuscular Volume 91.0, Mean Corpuscular Hemoglobin 29.9, Mean Corpuscular Hemoglobin Concent 32.8, Mean Platelet Volume 9.5, Neutrophils (%) (Auto) 57.0, Lymphocytes (%) (Auto) 23.5, Monocytes (%) (Auto) 12.5, Eosinophils (%) (Auto) 6.3, Basophils (%) (Auto) 0.5, Neutrophils # (Auto ) 3.32, Lymphocytes # (Auto) 1.37, Monocytes # (Auto) 0.73, Eosinophils # (Auto ) 0.37, Basophils # (Auto) 0.03 09/25/17 22:02 Test 09/25/17 22:00 09/25/17 22:02 09/25/17 22:45 White Blood Count 5.83 K/uL (4.8-10.8) Red Blood Count 4.45 M/uL (4.7-6.1) Hemoglobin 13.3 g/dL (14.0-18.0) Hematocrit 40.5 % (42-52) Mean Corpuscular Volume 91.0 fL (80-100) Mean Corpuscular Hemoglobin 29.9 pg (25-34) Mean Corpuscular Hemoglobin Concent 32.8 g/dl (32-36) Platelet Count 191 K/uL (130-400) Mean Platelet Volume 9.5 fL (7.4-10.4) Neutrophils (%) (Auto) 57.0 % Lymphocytes (%) (Auto) 23.5 % Monocytes (%) (Auto) 12.5 % Eosinophils (%) (Auto) 6.3 % Basophils (%) (Auto) 0.5 % Neutrophils # (Auto) 3.32 K/uL (1.4-6.5) Lymphocytes # (Auto) 1.37 K/uL (1.2-3.4) Monocytes # (Auto) 0.73 K/uL (0.11-0.59) Eosinophils # (Auto) 0.37 K/uL (0-0.5) Basophils # (Auto) 0.03 K/uL (0-0.2) RDW Standard Deviation 43.1 fL (36.4-46.3) RDW Coefficient of Variation 12.9 % (11.5-14.5) Immature Granulocyte % (Auto) 0.2 % Immature Granulocyte # (Auto) 0.01 K/uL (0.00-0.02) Prothrombin Time 10.7 SECONDS (9.0-12.0) Prothromb Time International Ratio 1.0 (0.9-1.1) Activated Partial Thromboplast Time 24.7 SECONDS (21.0-31.0) Partial Thromboplastin Ratio 1.0 Anion Gap 6.0 mmol/L (3-11) Est Creatinine Clear Calc Drug Dose 55.2 ml/min Estimated GFR () 73.2 Estimated GFR (Non- 63.1 BUN/Creatinine Ratio 17.4 (10-20) Calcium Level 9.0 mg/dl (8.5-10.1) Magnesium Level 2.1 mg/dl (1.8-2.4) Total Bilirubin 0.6 mg/dl (0.2-1) Direct Bilirubin 0.2 mg/dl (0-0.2) Aspartate Amino Transf (AST/SGOT) 19 U/L (15-37) Alanine Aminotransferase (ALT/SGPT) 20 U/L (12-78) Alkaline Phosphatase 79 U/L (45-117) Troponin I < 0.015 ng/ml (0-0.045) Total Protein 7.6 gm/dl (6.4-8.2) Albumin 3.8 gm/dl (3.4-5.0) Thyroid Stimulating Hormone (TSH) 2.420 uIu/ml (0.300-4.500) Urine Color YELLOW Urine Appearance CLEAR (CLEAR) Urine pH 5.5 (4.5-7.5) Urine Specific [place] 1.008 (1.000-1.030) Urine Protein NEG (NEG) Urine Glucose (UA) NEG (NEG) Urine Ketones NEG (NEG) Urine Occult Blood NEG (NEG) Urine Nitrite NEG (NEG) Urine Bilirubin NEG (NEG) Urine Urobilinogen NEG (NEG) Urine Leukocyte Esterase NEG (NEG) Laboratory results per my review. ECG Per My Interpretation Indication: other (dizziness, unclear speech) Rate (beats per minute): 65 Rhythm: normal sinus Findings: no ectopy, other (RBBB noted) Comparison ECG Date: 06/02/16 Change: no significant change ED Course 2200: The patient was evaluated in room A12B. A complete history and physical examination were performed. 2315: Upon reevaluation, the patient is resting. I discussed the results and treatment plan with him. He verbalized agreement of the treatment plan. He was discharged home. Medical Decision Differential diagnosis: Etiologies such as metabolic, infection, hypo/hyperglycemia, electrolyte abnormalities, cardiac sources, intracerebral event, toxicologic, neurologic, as well as others were entertained. Nursing notes reviewed. The patient is an 82-year-old male who presented to the emergency department for possible neurologic episode. The patient had what the family describes as an episode of dysarthria. This could be consistent with a TIA given the patient 's lack of symptoms at this time. I discussed patient's laboratory and radiographic studies with him. At this time he has no focal neurologic deficits. Patient was instructed to start taking a baby aspirin every morning. I also recommended that he call his family doctor to schedule follow up appointment and other study such as echocardiogram Holter monitor and MRI of the brain. I also recommended he get carotid Dopplers although the patient has had carotid Dopplers recently which did not show any acute disease. The patient was also encouraged to return the emergency department immediately if symptoms return. I discussed the importance of returning immediately because he could be a candidate for TPA given his normal workup at this time. Medication Reconcilliation Current Medication List: was personally reviewed by me Blood Pressure Screening Patient's blood pressure: Normal blood pressure Blood pressure disposition: Did not require urgent referral Impression Primary Impression: TIA (transient ischemic attack) Scribe Attestation The scribe's documentation has been prepared under my direction and personally reviewed by me in its entirety. I confirm that the note above accurately reflects all work, treatment, procedures, and medical decision making performed by me. Departure Information Dispostion Home / Self-Care Referrals Becca Cerna DO (PCP) Forms HOME CARE DOCUMENTATION FORM, IMPORTANT VISIT INFORMATION, WORK / SCHOOL INSTRUCTIONS Patient Instructions My [facility] Additional Instructions Call your family doctor to schedule a follow-up appointment. Continue all medications as prescribed. Start taking a baby aspirin every morning. You may require further studies such as an echocardiogram, Holter monitor, and MRI of the brain to further evaluate cause your symptoms. Return the emergency department immediately if symptoms change worsen or the need arises.
[2017-09-25 22:49] LABS: ALBUMIN 3.8 gm/dl (3.4-5.0); ALKALINE PHOSPHATASE 79 U/L (45-117); ALT/SGPT 20 U/L (12-78); AST/SGOT 19 U/L (15-37); BLOOD UREA NITROGEN 19 mg/dl (7-18); CARBON DIOXIDE 28 mmol/L (21-32); CREATININE 1.08 mg/dl (0.60-1.40); GLUCOSE 100 mg/dl (70-99); SODIUM 137 mmol/L (136-145); TOTAL PROTEIN 7.6 gm/dl (6.4-8.2)
[2017-09-25 23:22] VITALS: BP 128/76; PULSE 63; O2SAT 97
== END 2017-09-25 23:44 | disposition home or self-care (01) ==
LOC: C.EDB 21:43 → C.EDA 23:44
DX: G45.9 Transient cerebral ischemic attack, unspecified (principal); C61 Malignant neoplasm of prostate; Z88.8 Allergy status to other drugs, medicaments and biological substances; Z88.1 Allergy status to other antibiotic agents; Z88.6 Allergy status to analgesic agent

== ENCOUNTER → 2017-10-13 | Outpatient (CLI) | payer OTHER ==
[~2017-10-13] MED LIST changes: -[UNRECOGNIZED DRUG - OTHER] PO
--- NOTE | 2017-10-13 13:05 | DIAGNOSTIC IMAGING REPORT ---
MRI OF THE BRAIN WITHOUT CONTRAST CLINICAL HISTORY: G45.9 Transient ischemic attack (TIA)[id number] COMPARISON STUDY: Noncontrast head CT dated September 25, 2017 FINDINGS: Sagittal T1, axial diffusion, proton density and T2 weighted axial, coronal FLAIR, and axial T1-weighted images were acquired. No intra or extra-axial mass lesions are visualized Axial diffusion-weighted images reveal no evidence of acute or subacute infarction. There is no evidence of ventricular dilatation. Proton density T2-weighted and FLAIR images reveal scattered foci of increased T2 signal within the white matter, likely on a small vessel basis. There are no abnormal flow voids. There is a small left mastoid effusion. There is a partially empty sella. IMPRESSION: 1. No acute intracranial findings 2. No evidence of acute or subacute infarction 3. No evidence of intracranial mass Electronically signed by: Buddy Romeo M.D. 10/13/2017 1:04 PM Dictated Date/Time: 10/13/2017 1:00 PM
== END | disposition home or self-care (01) ==
LOC: C.MRI 12:00
PROVIDERS: ATTEND Family Medicine
DX: G45.9 Transient cerebral ischemic attack, unspecified (principal)